=== PATIENT | female | born 1965 | race Two or more races ===

== ENCOUNTER 2017-04-12 08:24 | Outpatient (CLI) | payer OTHER ==
[~2017-04-12 08:24] MED LIST: ETODOLAC; NEURONTIN800 MG; NORFLEX
== END 2017-04-12 11:17 | disposition home or self-care (01) ==
LOC: MAMO-SONO 08:24
DX: N64.9 Disorder of breast, unspecified (principal); N64.4 Mastodynia; Z12.31 Encounter for screening mammogram for malignant neoplasm of breast

== ENCOUNTER 2017-04-12 09:41 | Outpatient (CLI) | payer OTHER | END 2017-04-12 11:03 | disposition home or self-care (01) | LOC: NUCLEAR 09:41 | DX: M79.671 Pain in right foot (principal); I83.813 Varicose veins of bilateral lower extremities with pain ==

== ENCOUNTER 2018-09-10 09:30 | Outpatient (CLI) | payer OTHER | END 2018-09-10 09:32 | disposition home or self-care (01) | LOC: MAMO-SONO 09:30 | DX: N60.11 Diffuse cystic mastopathy of right breast (principal); N60.12 Diffuse cystic mastopathy of left breast; Z12.31 Encounter for screening mammogram for malignant neoplasm of breast; Z87.898 Personal history of other specified conditions; M79.671 Pain in right foot ==

== ENCOUNTER 2018-09-11 12:51 | Outpatient (CLI) | payer OTHER | END 2018-09-11 12:53 | disposition home or self-care (01) | LOC: NUCLEAR 12:51 | DX: M81.0 Age-related osteoporosis without current pathological fracture (principal) ==

== ENCOUNTER 2019-06-17 07:48 | Outpatient (CLI) | payer OTHER | END 2019-06-17 07:55 | disposition home or self-care (01) | LOC: SONOGRAMA 07:48 | DX: E04.2 Nontoxic multinodular goiter (principal); E06.3 Autoimmune thyroiditis ==

== ENCOUNTER 2020-03-06 08:24 | Outpatient (CLI) | payer OTHER | END 2020-03-06 08:38 | disposition home or self-care (01) | LOC: MAMO-SONO 08:24 | PROVIDERS: ATTEND General Practice | DX: Z12.31 Encounter for screening mammogram for malignant neoplasm of breast (principal); Z76.0 Encounter for issue of repeat prescription; N64.59 Other signs and symptoms in breast ==

== ENCOUNTER 2020-11-11 08:09 | Outpatient (CLI) | payer OTHER | END 2020-11-11 08:19 | disposition home or self-care (01) | LOC: TOM 08:09 | PROVIDERS: ATTEND General Practice | DX: R10.84 Generalized abdominal pain (principal); R10.11 Right upper quadrant pain; K21.9 Gastro-esophageal reflux disease without esophagitis; R19.5 Other fecal abnormalities ==

== ENCOUNTER 2021-08-03 08:16 | Outpatient (CLI) | payer OTHER | END 2021-08-03 08:31 | disposition home or self-care (01) | LOC: MAMO-SONO 08:16 | DX: N60.11 Diffuse cystic mastopathy of right breast (principal); N60.12 Diffuse cystic mastopathy of left breast; E04.2 Nontoxic multinodular goiter ==

== ENCOUNTER 2021-10-26 09:14 | Outpatient (CLI) | payer OTHER | END 2021-10-26 09:28 | disposition home or self-care (01) | LOC: SONOGRAMA 09:14 | PROVIDERS: ATTEND General Practice | DX: G89.11 Acute pain due to trauma (principal); R60.9 Edema, unspecified; R22.31 Localized swelling, mass and lump, right upper limb ==

== ENCOUNTER 2022-07-20 07:43 | Outpatient (CLI) | payer OTHER | END 2022-07-20 07:52 | disposition home or self-care (01) | LOC: SONOGRAMA 07:43 | PROVIDERS: ATTEND General Practice | DX: R10.9 Unspecified abdominal pain (principal); R31.9 Hematuria, unspecified ==

== ENCOUNTER 2022-08-10 09:56 | Outpatient (CLI) | payer OTHER | END 2022-08-10 10:04 | disposition home or self-care (01) | LOC: MAMO-SONO 09:56 | DX: N60.11 Diffuse cystic mastopathy of right breast (principal); N60.12 Diffuse cystic mastopathy of left breast; N64.4 Mastodynia ==

== ENCOUNTER 2023-08-31 08:17 | Outpatient (CLI) | payer OTHER | END 2023-08-31 08:38 | disposition home or self-care (01) | LOC: MAMO-SONO 08:17 | PROVIDERS: ATTEND General Practice | DX: Z12.31 Encounter for screening mammogram for malignant neoplasm of breast (principal); Z12.39 Encounter for other screening for malignant neoplasm of breast ==

== ENCOUNTER 2024-07-15 12:56 | Emergency (ER) | payer OTHER ==
[~2024-07-15] VITALS: Ht 165.1 cm; Wt 63.5 kg
[2024-07-15] MEDS ORDERED: BISOPROLOL-HCT1 EACH PO (14:00)
[2024-07-15] MEDS ORDERED: TAPAZOLE5 MG PO (14:01)
[2024-07-15] MEDS ORDERED: KETOROLAC TROMETHAMINE 30 MG VIAL IV ONE (15:45)
[2024-07-15] MEDS ORDERED: FAMOTIDINE/PF 20 MG/2 ML VIAL IV ONE (15:45)
[2024-07-15] MEDS ORDERED: 0.9 % SODIUM CHLORIDE 1,000 ML IV ONE (15:45)
[2024-07-15] MEDS ORDERED: ONDANSETRON HCL 2 MG/ML VIAL IV ONE (15:45)
[2024-07-15] MEDS ORDERED: FAMOTIDINE/PF 20 MG/2 ML VIAL ONE (15:53)
[2024-07-15] MEDS ORDERED: ONDANSETRON HCL 2 MG/ML VIAL ONE (15:53)
[2024-07-15] MEDS ORDERED: KETOROLAC TROMETHAMINE 30 MG VIAL ONE (15:53)
[2024-07-15 16:11] LABS: BASO % 0.3 % (0.1-1.2); EOS # 0.23 (0.04-0.54); EOS % 2.9 % (0.7-7.0); HEMATOCRIT 43.9 % (34.1-44.9); HEMOGLOBIN 14.2 g/dL (11.2-15.7); LYMPH # 2.29 (1.18-3.74); LYMPH % 28.8 % (19.3-53.1); MEAN CORPUSCULAR HEMOGLOBIN 27.2 pg (25.6-32.2); MONO # 0.47 (0.24-0.82); MONO % 5.9 % (4.7-12.5); NEUT # 4.93 (1.56-6.13); NEUT % 61.8 % (34.0-71.1); PLATELET COUNT 259 K/uL (163-369); RED BLOOD COUNT 5.23 M/uL (3.93-5.22)
[2024-07-15 16:30] LABS: INR 1.01; PARTIAL THROMBOPLASTIN TIME 28.8 SECONDS (22.0-34.0)
[2024-07-15 16:36] LABS: ALBUMIN 4.1 gm/dL (3.4-5.0); BILIRUBIN TOTAL 0.8 mg/dL (0.3-1.2); CALCIUM 9.7 mg/dL (8.5-10.1); CREATININE SERUM 0.74 mg/dL (0.55-1.02); GFR 80.61; GLOBULINA 3.8 G/DL (2.4-3.5); POTASSIUM 4.03 mEq/L (3.5-5.1); TOTAL PROTEIN 7.9 gm/dL (6.4-8.2)
[2024-07-15 17:00] LABS: PH,URINE 5.5 (5.0-8.0); URINE APPEARANCE Clear; URINE BILIRRUBIN Negative (NEGATIVE); URINE BLOOD Small; URINE COLOR Yellow; URINE GLUCOSE Negative (NEGATIVE); URINE KETONE Trace (NEGATIVE); URINE LEUKOCYTE Trace; URINE NITRATE Negative; URINE PROTEIN Negative (NEGATIVE); URINE UROBILINOGEN 0.2 E.U./dl
[2024-07-15 17:02] LABS: URINE BACTERIA 57.5 uL (0.0-1933); URINE RBC 3.9 uL (0.0-20.8); URINE WBC 16.4 uL (0.0-23.2)
[2024-07-15 17:18] LABS: URINE CAST 0.14 uL (0.0-1.40)
[2024-07-15] MEDS ORDERED: INTESTINEX680 M1 PO (19:54)
[2024-07-15] MEDS ORDERED: LEVSIN0.125 MG PO (19:54)
[2024-07-15] MEDS ORDERED: PEPCID AC20 MG PO (19:54)
== END 2024-07-15 20:19 ==
LOC: ER 12:56
PROVIDERS: General Practice
DX: K52.9 Noninfective gastroenteritis and colitis, unspecified (principal); R10.9 Unspecified abdominal pain; I10 Essential (primary) hypertension; E03.8 Other specified hypothyroidism
CPT/HCPCS: 36415; 74177; Q9965